=== PATIENT | male | born 1955 | race Caucasian/White ===

== ENCOUNTER → 2018-07-08 | Outpatient (CLI) | payer SELFPAY ==
--- NOTE | 2018-07-08 13:26 | Diagnostic Imaging Report ---
PROCEDURE: CT head without contrast. TECHNIQUE: Multiple contiguous axial images were obtained through the brain without the use of intravenous contrast. DATE: July 08, 2018. COMPARISON: None. INDICATION: 63-year-old male, altered mental status, dementia. FINDINGS: The frontal sinuses are hypoplastic bilaterally. The additional visualized portions of the paranasal sinuses, mastoid air cells, and middle ears are well aerated. There is proportional prominence of the ventricles and CSF spaces compatible with moderate cerebral volume loss. There is no mass effect or midline shift. There is no acute intracranial hemorrhage. There is no abnormal extra-axial fluid collection. IMPRESSION: 1. No identified acute intracranial abnormality. 2. Moderate cerebral volume loss. Dictated by: Dictated on workstation # [id number]
== END ==
LOC: RAD 13:08
PROVIDERS: ATTEND Family Medicine
DX: G93.9 Disorder of brain, unspecified (principal); F03.90 Unspecified dementia, unspecified severity, without behavioral disturbance, psychotic disturbance, mood disturbance, and anxiety
CPT/HCPCS: 70450

== ENCOUNTER → 2019-01-18 | Outpatient (CLI) | payer SELFPAY ==
--- NOTE | 2019-01-18 17:47 | Diagnostic Imaging Report ---
EXAMINATION: CHEST (PA AND LATERAL) CLINICAL INDICATION: 63-year-old male, shortness of breath. Evaluation for pneumonia. COMPARISON: None. FINDINGS: Heart size and mediastinal contours are unremarkable. There is no identified pneumothorax. There is no sizable layering pleural effusion. There is airspace consolidation in the left lower lobe. The right lung appears clear. IMPRESSION: Left lower lobe airspace consolidation concerning for pneumonia, aspiration, or other alveolar consolidative process. Recommend correlation clinically and ensure followup to resolution. Dictated by: Dictated on workstation # [id number]
== END ==
LOC: RAD 15:55
PROVIDERS: ATTEND Family Medicine
DX: J18.1 Lobar pneumonia, unspecified organism (principal)
CPT/HCPCS: 71046